=== PATIENT | female | born 1980 | race Caucasian/White ===

== ENCOUNTER → 2018-04-26 09:52 | Outpatient (CLI) | payer MEDICAID, SELFPAY ==
[2018-04-26 11:01] LABS: Absolute Lymphocyte Count 1.72 X10^3/ul (0.83-4.51); Absolute Neutrophil Count 4.3 X10^3/uL (2.0-7.7); Basophil# 0.01 X10^3/uL; Basophil% 0.2 % (0-1); Eosinophil# 0.15 X10^3/uL; Eosinophils% 2.3 % (0-5); Hematocrit 41.3 % (37-47); Hemoglobin 14.2 g/dl (12.0-15.0); Lymphocyte # 1.72 X10^3/ul (4.0); Lymphocyte % 26.2 % (19-41); Mean Corp Hgb Conc 34.4 g/gl (32-36); Mean Corpuscular Hgb 30.9 pg (27.0-32.0); Mean Platelet Vol. 9.5 fl (6.2-12.0); Monocyte# 0.35 X10^3/uL; Monocyte% 5.3 % (0-10); Neutrophil # 4.32 X10^3/uL (2.7-7.7); Neutrophil % 65.7 % (47-70); Platelet Count 347 K/mm3 (150-450); RBC Distribution Width CV 12.4 % (11.6-14.6); RBC Distribution Width SD 40.3 fl (35.1-43.9); Red Blood Count 4.59 M/mm3 (4.2-5.4); White Blood Count 6.6 K/mm3 (4.4-11.0)
[2018-04-26 11:04] LABS: POSITIVE COUNT NO; POSITIVE DIFFERENTIAL NO; POSITIVE MORPHOLOGY NO
[2018-04-26 11:26] LABS: Hemoglobin A1c 9.6 % (4.2-6.3)
[2018-04-26 11:28] LABS: ALB/GLOB Ratio 0.9 RATIO (0.9-2.4); AST(SGOT) 9 U/L (15-37); Alanine Aminotransfer ALT/SGPT 14 U/L (13-56); Albumin, Serum 3.7 g/dL (3.2-5.0); Alkaline Phosphatase 67 U/L (45-117); Anion Gap 8 (5-15); BUN 11 mg/dL (7-18); BUN/Creat Ratio 14.1 RATIO (10-20); Chloride 107 mmol/L (98-107); Cholesterol 191 mg/dL (200); Creatinine, Serum 0.78 mg/dL (0.55-1.02); EST Glomerular Filtration Rate 88 mL/min (>60); Est Glom Filt Rate - Afr Amer 106 mL/min (>60); Globulin 3.9 g/dL (2.2-4.2); Glucose 248 mg/dL (74-106); High Density Lipoprotein 31 mg/dL; Potassium 3.9 mmol/L (3.5-5.1); Protein, Total 7.6 g/dL (6.4-8.2); Sodium Level 140 mmol/L (136-145); Triglycerides 234 mg/dL; Very Low Density Lipoprotein 47 mg/dL (5-40)
[2018-04-26 11:32] LABS: Microalbumin,Random Urine 33.2 mg/L (NO RANGE EST.); Microalbumin:Creatinine Ratio 11.3 mg/g CRE (<30 mg/g CRE)
== END ==
PROVIDERS: Family Provider Internal Medicine; PCP Internal Medicine; Visit Provider Internal Medicine
DX: E11.9 Type 2 diabetes mellitus without complications (principal); E78.5 Hyperlipidemia, unspecified
CPT/HCPCS: 36415; 80053; 80061; 82043; 82570; 83036; 85025

== ENCOUNTER → 2018-07-19 10:04 | Outpatient (CLI) | payer MEDICAID, SELFPAY ==
[2018-05-05 14:30] VITALS: BMI 36.1
[2018-07-19 11:00] LABS: Absolute Lymphocyte Count 1.87 X10^3/ul (0.83-4.51); Absolute Neutrophil Count 5.3 X10^3/uL (2.0-7.7); Basophil# 0.02 X10^3/uL; Basophil% 0.3 % (0-1); Eosinophil# 0.31 X10^3/uL; Hematocrit 41.6 % (37-47); Lymphocyte # 1.87 X10^3/ul (4.0); Lymphocyte % 23.9 % (19-41); Mean Corp Hgb Conc 33.7 g/gl (32-36); Mean Corpuscular Hgb 30.8 pg (27.0-32.0); Mean Corpuscular Volume 91.4 fL (81-99); Mean Platelet Vol. 9.1 fl (6.2-12.0); Monocyte# 0.35 X10^3/uL; Monocyte% 4.5 % (0-10); Neutrophil # 5.25 X10^3/uL (2.7-7.7); Neutrophil % 67.2 % (47-70); Platelet Count 286 K/mm3 (150-450); RBC Distribution Width CV 12.7 % (11.6-14.6); RBC Distribution Width SD 41.3 fl (35.1-43.9); Red Blood Count 4.55 M/mm3 (4.2-5.4); White Blood Count 7.8 K/mm3 (4.4-11.0)
[2018-07-19 11:02] LABS: POSITIVE COUNT NO; POSITIVE DIFFERENTIAL NO; POSITIVE MORPHOLOGY NO
[2018-07-19 11:08] LABS: AST(SGOT) 11 U/L (15-37); Alanine Aminotransfer ALT/SGPT 13 U/L (13-56); Albumin, Serum 3.5 g/dL (3.2-5.0); Alkaline Phosphatase 71 U/L (45-117); Anion Gap 7 (5-15); BUN 8 mg/dL (7-18); BUN/Creat Ratio 10.1 RATIO (10-20); Calcium,Total 8.8 mg/dL (8.5-10.1); Chloride 107 mmol/L (98-107); Cholesterol 212 mg/dL (200); Creatinine, Serum 0.79 mg/dL (0.55-1.02); EST Glomerular Filtration Rate 86 mL/min (>60); Est Glom Filt Rate - Afr Amer 104 mL/min (>60); Globulin 3.4 g/dL (2.2-4.2); Glucose 269 mg/dL (74-106); High Density Lipoprotein 26 mg/dL; Potassium 4.1 mmol/L (3.5-5.1); Protein, Total 6.9 g/dL (6.4-8.2); Sodium Level 139 mmol/L (136-145); Triglycerides 458 mg/dL
[2018-07-19 11:18] LABS: Hemoglobin A1c 9.3 % (4.2-6.3)
--- OUTSIDE RECORDS SUMMARY | 2018-09-12 19:42 | XMS RPT_ITS ---
:1980 Author Organization [facility] Care Team Providers Name Role Phone Oleghe, Efewongbe Attending Unavailable Oleghe, Efewongbe Attending Unavailable Oleghe, Efewongbe Referring Unavailable Oleghe, Efewongbe Primary Care Unavailable Oleghe, Efewongbe Attending Unavailable Oleghe, Efewongbe Referring Unavailable Oleghe, Efewongbe Attending Unavailable Oleghe, Efewongbe Referring Unavailable Oleghe, Efewongbe Primary Care Unavailable Axel Murrell [employer] Attending Unavailable Oleghe, Efewongbe Referring Unavailable Longsdorf, Nadia A Attending Unavailable Longsdorf, Nadia A Primary Care Unavailable Longsdorf, Nadia A Admitting Unavailable Longsdorf, Nadia A Attending Unavailable Longsdorf, Nadia A Primary Care Unavailable Longsdorf, Nadia A Attending Unavailable Longsdorf, Nadia A Primary Care Unavailable Longsdorf, Nadia A Attending Unavailable Longsdorf, Nadia A Primary Care Unavailable Longsdorf, Nadia A Admitting Unavailable Longsdorf, Nadia A Attending Unavailable Longsdorf, Nadia A Primary Care Unavailable Kieran Blanca Admitting Unavailable Kieran Blanca Attending Unavailable Nadia Suh Primary Care Unavailable Nadia Suh Attending Unavailable Nadia Suh A Primary Care Unavailable No Doctor Assigned, Nodr Admitting Unavailable No Doctor Assigned, Nodr Attending Unavailable Nadia Suh A Primary Care Unavailable PROBLEMS PROBLEMS DATE TYPE CONDITION / CODE ATTENDING STATUS SOURCE 05/05/2018 Unknown E11.9 - Type 2 Oleghe, Active [place] diabetes mellitus [facility] without Hospital complications / Repository E11.9(ICD-10) 05/05/2018 Unknown E78.5 - Oleghe, Active [place] Hyperlipidemia, [facility] unspecified / Hospital E78.5(ICD-10) Repository 05/05/2018 Unknown E66.9 - Obesity, Oleghe, Active [facility] unspecified / [facility] E66.9(ICD-10) Hospital Repository 05/05/2018 Unknown Z51.81 - Encounter Oleghe, Active [facility] for therapeutic [facility] drug level Hospital monitoring / Repository Z51.81(ICD-10) PROCEDURES PROCEDURES No Procedure Records FoundRESULTS RESULTS INTERNAL MEDICINE Observed: 07/23/2018 Status: F Source: [facility] OFFICE VISIT 9:14 AM [facility] [address] [place] [address] [place] [address] OFFICE VISIT Date of Service: 07/22/18 MR#: [id number] Acct: [id number] Name: CAMILO HOROWITZ Rep #: [id number] : 1980 Provider: Axel Murrell NP Age/Sex: 37/F Location: [facility] Status: Signed Intake Vital Signs07/22/18 Body Mass Index (BMI) 36.1 07/22/18 Height 5 ft 6 in 07/22/18 Weight: 223 lb 07/22/18 Body Mass Index (BMI) 35.9 07/22/18 Blood Pressure 123/79 H Intake Visit Reasons: HAS FORM FOR NEW JOB AND NEEDS AN A1C Chief Complaint: Form for work needs filled out. Needs an A1C Is patient in pain?: No Allergies acetaminophen [From Vicodin] Allergy (Severe, Verified 07/22/18 14:58) Migraine hydrocodone [From Vicodin] Allergy (Severe, Verified 07/22/18 14:58) Migraine oxycodone [From Percocet] Allergy (Severe, Verified 07/22/18 14:58) Migraine Sulfa (Sulfonamide Antibiotics) Allergy (Severe, Verified 07/22/18 14:58) Vomiting Tetracyclines Allergy (Severe, Verified 07/22/18 14:58) yeast infection metformin Adverse Reaction (Severe, Verified 07/22/18 14:58) stomach pain Medications gabapentin 600 mg tablet 600 mg PO .QID tab 03/12/18 [History Confirmed 07/22/18] glimepiride 4 mg tablet 4 mg PO BID tab 03/12/18 [History Confirmed 07/22/18] potassium chloride ER 10 mEq tablet,extended release 10 meq PO QDAY PRN 03/12/18 [History Confirmed 07/22/18] sitagliptin 100 mg tablet 100 mg PO QDAY 03/12/18 [History Confirmed 07/22/18] exenatide ER 2 mg/0.65 mL subcutaneous pen injector 2 mg SUBCUT QWEEK #4 ea 07/22/18 [Rx Confirmed 07/22/18] PFSH Medical History Vision problems (Chronic) Polycystic ovaries (Chronic) Neuropathy (Chronic) IBS (irritable bowel syndrome) (Chronic) recurrent yeast infections (Chronic) High triglycerides (Chronic) High cholesterol (Chronic) Chronic headaches (Chronic) Gastrointestinal problem (Chronic) H/O emotional problems (Chronic) Diabetes (Chronic) Chronic bronchitis (Chronic) Back problem (Chronic) Seasonal allergies (Chronic) Family History Grandfather Anemia Kidney disease Grandmother Blood clot in vein Aunt Breast cancer Grandfather Colon cancer Mother Depression Kidney disease Mental disorder Father Hypertension Uncle Seizures Social History Smoking Status: Heavy Smoker (>10/day) alcohol intake: never substance use type: marijuana what type of physical activity do you participate in: none HPI HPI Chief Complaint: Form for work needs filled out. Needs an A1C Details: CAMILO HOROWITZ, is a 37 F who presents to the office today for an acute visit to go over her diabetes. She has a past medical history as listed above. 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 The patient states that she has been on gabapentin for approximately 4 years now and has tolerated it well. She denies any motor vehicle accidents or side effects of the medication that would cause her to be impaired when driving a vehicle. She does take this for chronic low back pain, and diabetic neuropathy. A recent A1c was done regarding her type 2 diabetes mellitus and was 9.3. The patient did recently discontinue her atorvastatin, fluoxetine, Victoza, lisinopril, and olanzapine. She states that she refuses those medications to treat her diabetes and bipolar disorder and that she is going the natural route and using [id number] supplements such as black cohosh and is doing intermittent fasting as a diet to help with her blood sugar control. She is willing to consider a weekly GLP1 inhibitor for her diabetes. She refuses all other medications. she denies any episodes of jammie or depression and states that her bipolar is under control without prescription medication management. The patient otherwise denies any fever, chills, nausea, vomiting, shortness of breath, chest pain or pressure, palpitations, orthopnea, lower extremity edema, syncope or presyncopal episodes. ROS Const Constitutional: No chills, fatigue, fever(s), frequent falls, malaise, weakness, sleep problems or change in appetite Eyes Eyes: No blurry vision, change in vision, double vision, discharge or visual disturbances ENT ENT: No abnormal hearing, ear pain, ear pressure, tinnitus or dizziness/vertigo Resp Respiratory: No cough, shortness of breath or wheezing Cardio Cardiology: No chest pain at rest, chest pain with exertion, shortness of breath, dyspnea on exertion, generalized swelling, irregular heart rhythm, lightheadedness, orthopnea, fast heart rate or palpitations Gastro GI: No abdominal pain, change in bowel habits, constipation, diarrhea, nausea/dyspepsia or vomiting Genitourinary-Female: No difficulty urinating, burning urination, painful urination, urinary incontinence, urinary frequency, urinary urgency, urinary hesitancy, urinary retention, Frequent nighttime urination/ nocturia, sexual problems, genital lesions, abnormal vaginal bleeding, pelvic pain, vaginal dryness, vaginal odor or Vaginal Itching Musc Musculoskeletal: No joint pain, back pain, joint swelling, limited range of motion, numbness, tingling or muscle weakness Skin Skin: No change in skin color, itching, rash or wounds Breast Breast: No breast lump or breast pain Neuro Neurology: No frequent falls, weakness, visual disturbances, abnormal hearing, numbness, tingling, unsteady gait/balance, dizziness, loss of vision or memory loss Psych Psychiatric: No change in appetite, No memory loss, No anxiety, No depression, No Thoughts of harming yourself/Others Endo Endocrine: No fatigue, heat intolerance, increased thirst/drinking, increased hunger or increased urination Aller/Imm Allergy/Immunologic: No wheezing, itchy eyes or seasonal allergy symptoms Dominic/Lymp Hematologic/Lymphatic: No easy bleeding, easy bruising or enlarged lymph nodes Exam Const General: cooperative, no acute distress Orientation: alert, awake, oriented x3 HENAL Head: atraumatic, normocephalic Ears: hearing grossly normal bilaterally Resp Effort AND Inspection: normal respiratory effort, able to speak in complete sentences Auscultation: Bilateral: Clear to Auscultation Cardio Rate: regular rate Rhythm: regular rhythm Heart Sounds: S1 normal, S2 normal GI Palpation: soft, no hepatosplenomegaly Musc Musculoskeletal: No muscle weakness Neuro General: alert, awake, oriented x3, moves all extremities, CN's II-XI intact bilaterally Extrem General: no clubbing, cyanosis or edema Psych Appearance: grossly normal Mood: congruent mood Affect: normal affect Assessment AND Plan 1. Type 2 diabetes mellitus E11.9 Plan The patient's most recent A1c was reviewed and was not at goal. Will make adjustments to his medication regimen including the addition of bydureon weekly. Educated patient on potential side effects of medication and proper instruction on its use. Discussed red flag symptoms that require urgent medical attention. Discussed with patient lifestyle changes, risk factor reduction, and the benefits of maximizing nutrition and exercise. Patient verbalized understanding. Patient to follow-up in 3 months with repeat A1c will be done prior. Patient refuses to be on lisinopril, and she discontinued her previous Victoza. Patient does state that eventually she is going to discontinue all of her medications. Educated patient not to do this and the potential deleterious effects of doing so. Patient has been on her gabapentin for 4 years now and has not had any unwanted side effects from it, she takes this for her neuropathy and back pain. 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 Did discuss with her that ill effects of hyperglycemia and the importance of bringing down her blood sugars, however she wishes to continue to work on lowering them the natural way 2. Neuropathy G62.9 Plan plan as above 3. Bipolar 1 disorder F31.9 Plan Denies any episodes of jammie or depression. She discontinued all of her bipolar medications and is now taking black cohosh. Did discuss that this was not medically recommended. Patient is aware of the risks and wishes to continue with natural treatment. Patient to follow-up as previously scheduled later this month or sooner if needed Plan Detail Other Medications New: exenatide ER (Bydureon) inject into abdomen, thigh2 mg (0.65 mL) subcut QWEEK 4 ea 3RF , or upper arm (deltoid muscle); rotate sites Follow Up As previously scheduled or sooner Coding Level of Care Code Off vis,est,level 3 Diagnoses Type 2 diabetes mellitus E11.9 Neuropathy G62.9 Bipolar 1 disorder F31.9 07/23/18 0914 <Electronically signed by Axel MORRIS> Date Axel MORRIS Cosigner Signature: Date (if applicable) CC: CBC W/DIFF, AUTOMATED Collected: 07/19/2018 Status: F Source: [facility] 10:21 AM [facility] TYPE CODE TESTS RESULT OUT OF RANGE REFERENCE UNITS LAB L100.1000 4.4-11.0 K/mm3 Normal WBC 7.8 LAB L100.1200 4.2-5.4 M/mm3 Normal RBC 4.55 LAB L100.1300 12.0-15.0 g/dl Normal HGB 14.0 LAB L100.1400 37-47 % Normal HCT 41.6 LAB L100.1500 81-99 fL Normal MCV 91.4 LAB L100.1600 27.0-32.0 pg Normal MCH 30.8 LAB L100.1700 32-36 g/gl Normal MCHC 33.7 LAB L100.1810 11.6-14.6 % Normal RDW CV 12.7 LAB L100.1820 35.1-43.9 fl Normal RDW SD 41.3 LAB L100.1900 150-450 K/mm3 Normal PLT 286 LAB L100.2000 6.2-12.0 fl Normal MPV 9.1 LAB L100.2100 47-70 % Normal NEUT% 67.2 LAB L100.2200 19-41 % Normal LY% 23.9 LAB L100.2300 0-10 % Normal MONO% 4.5 LAB L100.2400 0-5 % Normal EO% 4.0 LAB L100.2500 0-1 % Normal BASO% 0.3 LAB L100.2550 0.0-0.9 % Normal IM GRAN % 0.100 Result Comment: IG% - Immature Granulocytes (promyelocytes, myelocytes and metamyelocytes) > 1% indicates that a LEFT SHIFT is Present. LAB L100.2620 2.0-7.7 X10 3/uL Normal Absolute Neut 5.3 LAB L100.2720 0.83-4.51 X10 3/ul Normal Absolute Lymph 1.87 Performed By: #### L100.0100 #### [facility] [address] [place], [place], [address] COMPREHENSIVE METABOLIC Collected: 07/19/2018 Status: F Source: [facility] 10:21 AM [facility] TYPE CODE TESTS RESULT OUT OF RANGE REFERENCE UNITS LAB L501.0100 74-106 mg/dL High GLU 269 Result Comment: Glucose result greater than or equal to 200 mg/dL suggests DIABETES MELLITUS per A.D.A. criteria. Please note revised GLUCOSE reference range effective 2017. LAB L501.1000 7-18 mg/dL Normal BUN 8 LAB L501.1100 0.55-1.02 mg/dL Normal CREAT,SERUM 0.79 Result Comment: The validity of the calculated GFR AND GFRAA in patients over 70 years has not been determined. Clinical correlation is essential. LAB L501.1110 >60 mL/min Normal EST GFR 86 Result Comment: Non- GFR Calc LAB L501.1115 >60 mL/min Normal EST GFR - AA 104 Result Comment: GFR Calc LAB L501.1300 10-20 RATIO Normal BUN/CRE 10.1 LAB L501.1500 6.4-8.2 g/dL T Normal PROT 6.9 LAB L501.1800 3.2-5.0 g/dL Normal ALB 3.5 LAB L501.1950 2.2-4.2 g/dL Normal GLOB 3.4 LAB L501.2000 0.9-2.4 RATIO Normal A/G 1.0 LAB L501.2200 8.5-10.1 mg/dL CA Normal 8.8 LAB L501.4100 15-37 U/L Low AST 11 LAB L501.4305 45-117 U/L Normal ALK P 71 LAB L501.4405 13-56 U/L Normal ALT 13 LAB L501.4600 0.20-1.00 mg/dL T Normal BILI 0.30 LAB L501.5300 136-145 mmol/L NA Normal 139 LAB L501.5600 3.5-5.1 mmol/L K Normal 4.1 LAB L501.5900 98-107 mmol/L CL Normal 107 LAB L501.6100 21.0-32.0 mmol/L Normal CO2 25.0 LAB L501.6200 5-15 Normal GAP 7 Performed By: #### L500.4050, L500.4100 #### [facility] [address] [place], [address] LIPID PROFILE Collected: 07/19/2018 Status: F Source: [facility] 10:21 AM [facility] TYPE CODE TESTS RESULT OUT OF RANGE REFERENCE UNITS LAB L501.4900 200 mg/dL High CHOL 212 Result Comment: <200 mg/dL Desirable 200-240 mg/dL Borderline >240 mg/dL High Risk LAB L501.5000 mg/dL High TRIG 458 Result Comment: The drugs N-Acetylcysteine and Metamizole may falsely depress this assay. TRIGLYCERIDE IS GREATER THAN 400 mg/dL. LDL RESULT IS INVALID AND WILL NOT BE REPORTED. Serum Triglycerides Reference Interval Normal <150 mg/dL Borderline high 150 - 199 mg/dL High 200 - 499 mg/dL Very High > or = 500 mg/dL LAB L501.6400 mg/dL Low HDL 26 Result Comment: The drugs N-Acetylcysteine and Metamizole may falsely depress this assay. Reference Range HDL <40 mg/dL Low HDL Cholesterol HDL >or= 60 mg/dL High HDL Cholesterol LAB L501.6500 0-130 mg/dL Test Normal not performed LDL LAB L501.6600 5-40 mg/dL Test Normal not performed VLDL Performed By: #### L500.4050, L500.4100 #### [facility] [address] [place], [address] HEMOGLOBIN A1C Collected: 07/19/2018 Status: F Source: [facility] 10:21 AM [facility] TYPE CODE TESTS RESULT OUT OF RANGE REFERENCE UNITS LAB L501.9985 4.2-6.3 % High HGB A1C 9.3 Performed By: #### L501.9985 #### [facility] [address] [place], [address] INTERNAL MEDICINE Observed: 05/06/2018 Status: F Source: [facility] [place] OFFICE VISIT 5:15 PM [facility] [address] [place] [address] [place] [address] OFFICE VISIT Date of Service: 05/05/18 MR#: [id number] Acct: [id number] Name: HOROWITZCAMILO Elle Rep #: [id number] : 1980 Provider: Chano Abrams MD Age/Sex: 37/F Location: [facility] Status: Signed Intake Vital Signs05/05/18 Height 5 ft 6 in Intake Visit Reasons: 1 MO FU Chief Complaint: follow-up visit Is patient in pain?: No Allergies acetaminophen [From Vicodin] Allergy (Severe, Verified 03/12/18 18:00) Migraine hydrocodone [From Vicodin] Allergy (Severe, Verified 03/12/18 18:00) Migraine oxycodone [From Percocet] Allergy (Severe, Verified 03/12/18 18:00) Migraine Sulfa (Sulfonamide Antibiotics) Allergy (Severe, Verified 03/12/18 18:00) Vomiting Tetracyclines Allergy (Severe, Verified 03/12/18 18:00) yeast infection metformin Adverse Reaction (Severe, Verified 03/12/18 18:00) stomach pain Medications gabapentin 600 mg tablet 600 mg PO .QID tab 03/12/18 [History Confirmed 03/12/18] glimepiride 4 mg tablet 4 mg PO BID tab 03/12/18 [History Confirmed 03/12/18] hydroxyzine HCl 25 mg tablet 25 mg PO TID-QID PRN 03/12/18 [History Confirmed 03/12/18] liraglutide 0.6 mg/0.1 mL (18 mg/3 mL) subcutaneous pen injector 1.2 mg SC QDAY #9 ml 03/12/18 [Rx Confirmed 03/12/18] potassium chloride ER 10 mEq tablet,extended release 10 meq PO QDAY PRN 03/12/18 [History Confirmed 03/12/18] sitagliptin 100 mg tablet 100 mg PO QDAY 03/12/18 [History Confirmed 03/12/18] CBD oil INHALATION 05/05/18 [History Confirmed 05/05/18] atorvastatin 40 mg tablet 40 mg PO DAILY #90 tab 05/05/18 [Rx Confirmed 05/05/18] fluoxetine 20 mg capsule 20 mg PO QPM #30 cap 05/05/18 [Rx Confirmed 05/05/18] lisinopril 2.5 mg tablet 2.5 mg PO DAILY #60 tab 05/05/18 [Rx Confirmed 05/05/18] olanzapine 5 mg tablet 5 mg PO QPM #30 tab 05/05/18 [Rx Confirmed 05/05/18] PFSH Medical History Vision problems (Chronic) Polycystic ovaries (Chronic) Neuropathy (Chronic) IBS (irritable bowel syndrome) (Chronic) recurrent yeast infections (Chronic) High triglycerides (Chronic) High cholesterol (Chronic) Chronic headaches (Chronic) Gastrointestinal problem (Chronic) H/O emotional problems (Chronic) Diabetes (Chronic) Chronic bronchitis (Chronic) Back problem (Chronic) Seasonal allergies (Chronic) Family History Grandfather Anemia Kidney disease Grandmother Blood clot in vein Aunt Breast cancer Grandfather Colon cancer Mother Depression Kidney disease Mental disorder Father Hypertension Uncle Seizures Social History Smoking Status: Heavy Smoker (>10/day) alcohol intake: never substance use type: marijuana what type of physical activity do you participate in: none HPI HPI Chief Complaint: follow-up visit Details: CAMILO HOROWITZ, is a 37 F who presents to the office today for follow-up of her chronic medical conditions. She has a history of poorly controlled diabetes. She brings along a blood sugar log which shows poor control still. Last A1c of 9.6. She reports compliance with her medications. She is up-to-date with her podiatry and ophthalmology visits. He however reports a history of bipolar disorder and recently discontinued Effexor due to worsening jammie. Had previously followed up with psychiatry however does not now. ROS Const Constitutional: No weight change, body ache, chills, fatigue, sleep problems, fever(s), change in appetite, snoring, weakness, frequent falls, headache(s) or excessive sweating Eyes Eyes: No change in vision, eye pain, light sensitivity or blurry vision ENT ENT: No headache(s), abnormal hearing, ear pain, tinnitus, nasal congestion, sore throat or neck pain Resp Respiratory: No snoring, cough, shortness of breath or wheezing Cardio Cardiology: No excessive sweating, chest pain at rest, chest pain with exertion, shortness of breath, dyspnea on exertion, palpitations, orthopnea or lightheadedness Gastro GI: No abdominal pain, change in bowel habits, constipation, diarrhea, vomiting, nausea/dyspepsia or cramping Genitourinary-Female: No burning urination, painful urination, urinary incontinence, urinary frequency, abnormal vaginal bleeding, pelvic pain or other Musc Musculoskeletal: No neck pain, abnormal walking, joint pain, back pain, limited range of motion, numbness, tingling or muscle weakness Skin Skin: No redness, dry skin, itching, lesions, wounds or rash Neuro Neurology: No weakness, frequent falls, headache(s), abnormal hearing, abnormal walking, numbness, tingling, abnormal speech, dizziness or memory loss Psych Psychiatric: No change in appetite, No memory loss, No anxiety, No depression, No Thoughts of harming yourself/Others Endo Endocrine: No fatigue, excessive sweating, cold intolerance, increased thirst/drinking, heat intolerance, flushing or increased hunger Aller/Imm Allergy/Immunologic: No wheezing, itchy eyes, hives or seasonal allergy symptoms Dominic/Lymp Hematologic/Lymphatic: No easy bleeding, easy bruising or enlarged lymph nodes Exam Const General: cooperative, no acute distress Orientation: alert, awake, oriented x3 HENMT Head: atraumatic, normocephalic Ears: hearing grossly normal bilaterally Resp Effort AND Inspection: normal respiratory effort, able to speak in complete sentences Auscultation: Bilateral: Clear to Auscultation Cardio Rate: regular rate Rhythm: regular rhythm Heart Sounds: S1 normal, S2 normal GI Palpation: soft, no hepatosplenomegaly Musc Musculoskeletal: No muscle weakness Neuro General: alert, awake, oriented x3, moves all extremities, CN's II-XI intact bilaterally Extrem General: no clubbing, cyanosis or edema Psych Appearance: grossly normal Mood: congruent mood Affect: normal affect Assessment AND Plan 1. Type 2 diabetes mellitus E11.9 Plan Not optimally controlled. I believe to Lidex and this has to do with her dietary intake. Referred to the why weight program. Lifestyle and dietary modifications strongly encouraged. Compliance with medication also encouraged. Started on lisinopril and atorvastatin. Follows up with [facility]. Scheduled to have a ophthalmology check soon. Repeat labs in 3 months. Orders Orders: Referrals: 2. Bipolar 1 disorder F31.9 Plan Has been on antidepressants which has worsened her symptoms of jammie. Will start on Zyprexa 5 mg and fluoxetine 20 mg every evening. Follow-up in 1 month with [facility]. 3. Hyperlipidemia E78.5 Plan Chronic. Hypertriglyceridemia with no significant improvement. We will switch to Lipitor as stated above. Lifestyle modifications discussed. Follow-up at next visit. Orders Orders: Plan Detail Other Orders Orders: Referrals: Other Medications New: Discontinued: Coding Level of Care Code Off vis,est,level 4 Diagnoses Type 2 diabetes mellitus E11.9 Bipolar 1 disorder F31.9 Hyperlipidemia E78.5 05/06/18 1715 <Electronically signed by Chano Abrams MD> Date Chano Abrams MD Cosigner Signature: Date (if applicable) CC: [facility] W/DIFF, AUTOMATED Collected: 04/26/2018 Status: F Source: [facility] 10:09 AM [facility] TYPE CODE TESTS RESULT OUT OF RANGE REFERENCE UNITS LAB L100.1000 4.4-11.0 K/mm3 Normal WBC 6.6 LAB L100.1200 4.2-5.4 M/mm3 Normal RBC 4.59 LAB L100.1300 12.0-15.0 g/dl Normal HGB 14.2 LAB L100.1400 37-47 % Normal HCT 41.3 LAB L100.1500 81-99 fL Normal MCV 90.0 LAB L100.1600 27.0-32.0 pg Normal MCH 30.9 LAB L100.1700 32-36 g/gl Normal MCHC 34.4 LAB L100.1810 11.6-14.6 % Normal RDW CV 12.4 LAB L100.1820 35.1-43.9 fl Normal RDW SD 40.3 LAB L100.1900 150-450 K/mm3 Normal PLT 347 LAB L100.2000 6.2-12.0 fl Normal MPV 9.5 LAB L100.2100 47-70 % Normal NEUT% 65.7 LAB L100.2200 19-41 % Normal LY% 26.2 LAB L100.2300 0-10 % Normal MONO% 5.3 LAB L100.2400 0-5 % Normal EO% 2.3 LAB L100.2500 0-1 % Normal BASO% 0.2 LAB L100.2550 0.0-0.9 % Normal IM GRAN % 0.300 Result Comment: IG% - Immature Granulocytes (promyelocytes, myelocytes and metamyelocytes) > 1% indicates that a LEFT SHIFT is Present. LAB L100.2620 2.0-7.7 X10 3/uL Normal Absolute Neut 4.3 LAB L100.2720 0.83-4.51 X10 3/ul Normal Absolute Lymph 1.72 Performed By: #### L100.0100 #### [facility] [address] [place], [place], [id number] HEMOGLOBIN A1C Collected: 04/26/2018 Status: F Source: [facility] 10:08 AM [facility] TYPE CODE TESTS RESULT OUT OF RANGE REFERENCE UNITS LAB L501.9985 4.2-6.3 % High HGB A1C 9.6 Performed By: #### L501.9985 #### [facility] [address] [place], [place], [id number] COMPREHENSIVE METABOLIC Collected: 04/26/2018 Status: F Source: [facility] 10:08 AM [facility] Order Comment: Comments: Fasting Comments: Fasting TYPE CODE TESTS RESULT OUT OF RANGE REFERENCE UNITS LAB L501.0100 74-106 mg/dL High GLU 248 Result Comment: Glucose result greater than or equal to 200 mg/dL suggests DIABETES MELLITUS per A.D.A. criteria. Please note revised GLUCOSE reference range effective 2017. LAB L501.1000 7-18 mg/dL Normal BUN 11 LAB L501.1100 0.55-1.02 mg/dL Normal CREAT,SERUM 0.78 Result Comment: The validity of the calculated GFR AND GFRAA in patients over 70 years has not been determined. Clinical correlation is essential. LAB L501.1110 >60 mL/min Normal EST GFR 88 Result Comment: Non- GFR Calc LAB L501.1115 >60 mL/min Normal EST GFR - AA 106 Result Comment: GFR Calc LAB L501.1300 10-20 RATIO Normal BUN/CRE 14.1 LAB L501.1500 6.4-8.2 g/dL T Normal PROT 7.6 LAB L501.1800 3.2-5.0 g/dL Normal ALB 3.7 LAB L501.1950 2.2-4.2 g/dL Normal GLOB 3.9 LAB L501.2000 0.9-2.4 RATIO Normal A/G 0.9 LAB L501.2200 8.5-10.1 mg/dL CA Normal 9.0 LAB L501.4100 15-37 U/L Low AST 9 LAB L501.4305 45-117 U/L Normal ALK P 67 LAB L501.4405 13-56 U/L Normal ALT 14 LAB L501.4600 0.20-1.00 mg/dL T Normal BILI 0.30 LAB L501.5300 136-145 mmol/L NA Normal 140 LAB L501.5600 3.5-5.1 mmol/L K Normal 3.9 LAB L501.5900 98-107 mmol/L CL Normal 107 LAB L501.6100 21.0-32.0 mmol/L Normal CO2 25.0 LAB L501.6200 5-15 Normal GAP 8 Performed By: #### L500.4050, L500.4100 #### [facility] [address] [place], [address] LIPID PROFILE Collected: 04/26/2018 Status: F Source: BIAN[place] 10:08 AM [facility] Order Comment: Comments: Fasting Comments: Fasting TYPE CODE TESTS RESULT OUT OF RANGE REFERENCE UNITS LAB L501.4900 200 mg/dL Normal CHOL 191 Result Comment: <200 mg/dL Desirable 200-240 mg/dL Borderline >240 mg/dL High Risk LAB L501.5000 mg/dL High TRIG 234 Result Comment: The drugs N-Acetylcysteine and Metamizole may falsely depress this assay. Serum Triglycerides Reference Interval Normal <150 mg/dL Borderline high 150 - 199 mg/dL High 200 - 499 mg/dL Very High > or = 500 mg/dL LAB L501.6400 mg/dL Low HDL 31 Result Comment: The drugs N-Acetylcysteine and Metamizole may falsely depress this assay. Reference Range HDL <40 mg/dL Low HDL Cholesterol HDL >or= 60 mg/dL High HDL Cholesterol LAB L501.6500 0-130 mg/dL Normal LDL 113 LAB L501.6600 5-40 mg/dL High VLDL 47 Performed By: #### L500.4050, L500.4100 #### [facility] [address] [place], [address] MICROALB:CREAT Collected: 04/26/2018 Status: F Source: BIANCA RATIO,RANDOM UR 10:08 AM [facility] TYPE CODE TESTS RESULT OUT OF RANGE REFERENCE UNITS LAB L501.1200 NO RANGE EST. mg/dL Normal UR CREAT 293.00 LAB L502.0500 NO RANGE EST. mg/L Normal 33.2 MICROALBUMIN ,UR LAB L502.0600 <30 mg/g CRE mg/g CRE Normal 11.3 MALB:CREAT Performed By: #### L502.0250 #### [facility] [address] [place], [address] INTERNAL MEDICINE Observed: 03/17/2018 Status: F Source: BIANCA OFFICE VISIT 4:20 PM [facility] [address] [place] [address] OFFICE VISIT Date of Service: 03/12/18 MR#: [id number] Acct: [id number] Name: CAMILO HOROWITZ Rep #: [id number] : 1980 Provider: Chano Abrams MD Age/Sex: 37/F Location: [facility] Status: Signed Intake Vital Signs03/12/18 Height 5 ft 6 in 03/12/18 Weight: 223 lb 03/12/18 Body Mass Index (BMI) 35.9 03/12/18 Blood Pressure 122/79 Intake Visit Reasons: est pcp Chief Complaint: Check up Est PCP Is patient in pain?: No Allergies acetaminophen [From Vicodin] Allergy (Severe, Verified 03/12/18 18:00) Migraine hydrocodone [From Vicodin] Allergy (Severe, Verified 03/12/18 18:00) Migraine oxycodone [From Percocet] Allergy (Severe, Verified 03/12/18 18:00) Migraine Sulfa (Sulfonamide Antibiotics) Allergy (Severe, Verified 03/12/18 18:00) Vomiting Tetracyclines Allergy (Severe, Verified 03/12/18 18:00) yeast infection metformin Adverse Reaction (Severe, Verified 03/12/18 18:00) stomach pain Medications gabapentin 600 mg tablet 600 mg PO .QID tab 03/12/18 [History Confirmed 03/12/18] gemfibrozil 600 mg tablet 600 mg PO BID 03/12/18 [History Confirmed 03/12/18] glimepiride 4 mg tablet 4 mg PO BID tab 03/12/18 [History Confirmed 03/12/18] hydroxyzine HCl 25 mg tablet 25 mg PO TID-QID PRN 03/12/18 [History Confirmed 03/12/18] liraglutide 0.6 mg/0.1 mL (18 mg/3 mL) subcutaneous pen injector 1.2 mg SC QDAY #9 ml 03/12/18 [Rx Confirmed 03/12/18] potassium chloride ER 10 mEq tablet,extended release 10 meq PO QDAY PRN 03/12/18 [History Confirmed 03/12/18] sitagliptin 100 mg tablet 100 mg PO QDAY 03/12/18 [History Confirmed 03/12/18] venlafaxine ER 150 mg capsule,extended release 24 hr 150 mg PO QDAY 03/12/18 [History Confirmed 03/12/18] PFSH Medical History Vision problems (Chronic) Polycystic ovaries (Chronic) Neuropathy (Chronic) IBS (irritable bowel syndrome) (Chronic) recurrent yeast infections (Chronic) High triglycerides (Chronic) High cholesterol (Chronic) Chronic headaches (Chronic) Gastrointestinal problem (Chronic) H/O emotional problems (Chronic) Diabetes (Chronic) Chronic bronchitis (Chronic) Back problem (Chronic) Seasonal allergies (Chronic) Family History Grandfather Anemia Kidney disease Grandmother Blood clot in vein Aunt Breast cancer Grandfather Colon cancer Mother Depression Kidney disease Mental disorder Father Hypertension Uncle Seizures Social History Smoking Status: Heavy Smoker (>10/day) alcohol intake: never substance use type: marijuana what type of physical activity do you participate in: none HPI HPI Chief Complaint: Check up Est PCP Details: CAMILO HOROWITZ, is a 37yo F who presents to the office today to establish care. She has a history of poorly controlled DM and hyperlipidemia. She reports compliance with her medications however has had difficulty complying with her diet. ROS Const Constitutional: No chills, fever(s), frequent falls, malaise, weakness, sleep problems or change in appetite Eyes Eyes: No blurry vision, change in vision, double vision, discharge or visual disturbances ENT ENT: No abnormal hearing, ear pain, ear pressure, tinnitus or dizziness/vertigo Resp Respiratory: No cough, shortness of breath or wheezing Cardio Cardiology: No chest pain at rest, chest pain with exertion, shortness of breath, dyspnea on exertion, generalized swelling, irregular heart rhythm, lightheadedness, orthopnea, fast heart rate or palpitations Gastro GI: No abdominal pain, change in bowel habits, constipation, diarrhea, nausea/dyspepsia or vomiting Genitourinary-Female: No difficulty urinating, burning urination, painful urination, urinary incontinence, urinary frequency, urinary urgency, urinary hesitancy, urinary retention, Frequent nighttime urination/ nocturia, sexual problems, genital lesions, abnormal vaginal bleeding, pelvic pain, vaginal dryness, vaginal odor or Vaginal Itching Musc Musculoskeletal: Positive for back pain; no joint pain, joint swelling, limited range of motion, muscle weakness, numbness or tingling Skin Skin: No change in skin color, itching, rash or wounds Breast Breast: No breast lump or breast pain Neuro Neurology: No frequent falls, weakness, abnormal hearing, numbness, tingling, unsteady gait/balance, dizziness, loss of vision, memory loss or visual disturbances Psych Psychiatric: No memory loss, Positive for anxiety, No change in appetite, Positive for depression, No Thoughts of harming yourself/Others Endo Endocrine: Positive for increased thirst/drinking; no heat intolerance, increased hunger or increased urination Aller/Imm Allergy/Immunologic: No wheezing, itchy eyes or seasonal allergy symptoms Dominic/Lymp Hematologic/Lymphatic: No easy bleeding, easy bruising or enlarged lymph nodes Exam Const General: cooperative, no acute distress Orientation: alert, awake, oriented x3 HENMT Head: atraumatic, normocephalic Ears: hearing grossly normal bilaterally Resp Effort AND Inspection: normal respiratory effort, able to speak in complete sentences Auscultation: Bilateral: Clear to Auscultation Cardio Rate: regular rate Rhythm: regular rhythm Heart Sounds: S1 normal, S2 normal GI Palpation: soft, no hepatosplenomegaly Musc Musculoskeletal: No muscle weakness Neuro General: alert, awake, oriented x3, moves all extremities, CN's II-XI intact bilaterally Extrem General: no clubbing, cyanosis or edema Psych Appearance: grossly normal Mood: congruent mood Affect: normal affect Assessment AND Plan 1. Type 2 diabetes mellitus E11.9 Plan Poorly controlled. Lengthy discussion on the need for life style modification. Increase Victoza to 1.2mg daily. Labs ordered. Follow up in 1 month. Orders Orders: 2. Hyperlipidemia E78.5 Plan Lipid profile ordered. Continue current medication. Orders Orders: 3. Depression with anxiety F41.8 Plan Stable. Continue Effexor. Will follow. Plan Detail Other Medications New: Follow Up 1 Month Coding Level of Care Code Off vis,new,level 4 Diagnoses Type 2 diabetes mellitus E11.9 Hyperlipidemia E78.5 Depression with anxiety F41.8 03/17/18 1620 <Electronically signed by Chano Abrams MD> Date Chano Abrams MD Cosigner Signature: Date (if applicable) CC: CMP Collected: 08/20/2017 Status: F Source: [facility] 1:12 PM [facility] REPOSITORY TYPE CODE TESTS RESULT OUT OF RANGE REFERENCE UNITS LAB 08640554(L 70-99 mg/dL OINC) High Glucose Lvl 336 LAB 98179432(L 8.4-10.2 mg/dL OINC) Calcium Normal Lvl 9.7 LAB 11884930(L 136-145 mEq/L OINC) Sodium Normal Lvl 137 LAB 07754099(L 3.5-5.1 mEq/L OINC) Normal Potassium Lvl 4.4 LAB 50320235(L 98-107 mEq/L OINC) Chloride Normal 104 LAB 31623874(L 24.0-30.0 mEq/L OINC) CO2 Normal 24.5 LAB 84576454(L 7-18 mg/dL OINC) BUN Normal 9 LAB 0629989(LO 0.6-1.3 mg/dL INC) Normal Creatinine 0.6 LAB 92160061(L 42-121 Int._Unit/ OINC) L Alk Phos Normal 60 LAB 29731500(L 0.2-1.0 mg/dL OINC) Bili Normal Total 0.7 LAB 01692017(L 3.2-5.0 G/DL OINC) Albumin Normal Lvl 4.2 LAB 90350450(L 6.4-8.3 G/DL OINC) Total Normal Protein 7.6 LAB 22874167(L 10-40 Int._Unit/ OINC) L ALT Normal 11 LAB 10011165(L 10-42 Int._Unit/ OINC) L AST Normal 10 LAB 71084374(L 5.4-30.0 ratio OINC) Normal BUN/Creat Ratio 15.0 LAB 61104971(L 2.0-4.0 G/DL OINC) Globulin Normal 3.4 LAB 23650497(L 1.1-1.9 ratio OINC) A/G Normal Ratio 1.2 Performed By: #### [id number] #### [facility] [address] [place] [address] CBC W/ AUTO DIFF Collected: 08/20/2017 Status: F Source: [facility] 1:12 PM [facility] RE[facility] TYPE CODE TESTS RESULT OUT OF RANGE REFERENCE UNITS LAB 16027550(L 3.6-11.0 E3/mcL OINC) Normal WBC 8.3 LAB 73594784(L 3.90-5.40 E6/mcL OINC) Normal RBC 4.53 LAB 58882836(L 12.0-16.0 G/DL OINC) Normal Hgb 14.4 LAB 82403138(L 36.0-48.0 % OINC) Normal Hct 41.8 LAB 43693589(L 11.5-14.5 % OINC) Normal RDW 13.2 LAB 93777700(L 27.0-31.0 pg OINC) High MCH 31.7 LAB 22472541(L 33.0-37.0 G/DL OINC) Normal MCHC 34.4 LAB 05597754(L 78.0-100.0 fL OINC) Normal MCV 92.3 LAB 18923933(L 7.4-11.0 fL OINC) Normal MPV 7.9 LAB 80643571(L 130-400 E3/mcL OINC) Normal Platelet 322 Performed By: #### [id number] #### [place] [address] AUTO DIFF Collected: 08/20/2017 Status: F Source: [facility] 1:12 PM [facility] REPOSITORY Order Comment: Order Added by Discern Expert. TYPE CODE TESTS RESULT OUT OF RANGE REFERENCE UNITS LAB 86510722(L 37.0-75.0 % OINC) Normal Neutro Auto 72.0 LAB 15447930(L 20.0-55.0 % OINC) Normal Lymph Auto 21.5 LAB 43949186(L 0.0-10.0 % OINC) Normal Marin Auto 4.6 LAB 12242810(L 0.0-11.0 % OINC) Normal Eos Auto 1.5 LAB 46171582(L 0.0-2.0 % OINC) Normal Basophil Auto 0.4 LAB 04029074(L 1.4-6.5 E3/mcL OINC) Normal Neutro 6.0 Absolute LAB 53343169(L 1.2-3.4 E3/mcL OINC) Normal Lymph Absolute 1.8 LAB 61559794(L 0.0-0.7 E3/mcL OINC) Normal Marin Absolute 0.4 LAB 68013864(L 0.0-0.7 E3/mcL OINC) Normal Eos Absolute 0.1 LAB 28304402(L 0.0-0.2 E3/mcL OINC) Normal Basophil 0.0 Absolute Performed By: #### [id number] #### [facility] [address] [place] [address] EGFR Collected: 08/20/2017 Status: F Source: [facility] 1:12 PM [facility] REPOSITORY Order Comment: Order added by Discern Expert. TYPE CODE TESTS RESULT OUT OF RANGE REFERENCE UNITS LAB 41141667(LO mL/min/1.73 INC) m2 Normal eGFR >60 LAB 16945661(LO mL/min/1.73 INC) m2 Normal eGFR AA >60 Performed By: #### [id number] #### [facility] [address] [place] [address] MICROALB/CREAT RATIO Collected: 08/20/2017 Status: F Source: [facility] 1:12 PM [facility] REPOSITORY TYPE CODE TESTS RESULT OUT OF REFERENCE UNITS RANGE LAB 41995333(L 0.0-1.9 mg/dL OINC) Ur High Microalbumin 3.6 LAB 42251873(L 20.0-300.0 mg/dL OINC) Ur Creat Normal 114.0 LAB 03497454(L 0-30 ug/mg OINC) Microalb/Creat High 32 Performed By: #### [id number] #### [facility] [address] [place] [address] LIPID PROFILE Collected: 08/20/2017 Status: F Source: [facility] 1:12 PM [facility] REPOSITORY TYPE CODE TESTS RESULT OUT OF RANGE REFERENCE UNITS LAB 78477759(LO 50-200 mg/dL INC) High Chol 214 Result Comment: TOTAL CHOLEESTEROL: <200 NORMAL 200 - 239 BORDERLINE HIGH >240 HIGH LAB 87964558(LOINC) >=41 mg/dL Low HDL 34 LAB 37736312(LOINC) 0-130 mg/dL High LDL 136 Result Comment: <100 OPTIMAL 100-129 NEAR / ABOVE OPTIMAL 130-159 BORDERLINE HIGH 160-189 HIGH >190 VERY HIGH CALC LDL NOT VALID WHEN TRIGLYCERIDE IS >400 MG/DL LAB 13635829(LOINC) 35-150 mg/dL High Trig 221 Result Comment: <150 NORMAL 150-199 BORDERLINE HIGH 200-499 HIGH >500 VERY HIGH LAB 17744216(LOINC) Normal VLDL 44 Performed By: #### [id number] #### [facility] [address] [place], [place] [address] VITAMIN D 25 HYDROXY Collected: 08/20/2017 Status: F Source: [facility] 1:12 PM [facility] REPOSITORY TYPE CODE TESTS RESULT OUT OF REFERENCE UNITS RANGE LAB 336061569(L 30.0-100.0 ng/mL OINC) Low Vitamin D 25 20.4 Hydroxy Performed By: #### [id number] #### [place] [address] HGBA1C Collected: 08/20/2017 Status: F Source: [facility] 1:12 PM [facility] REPOSITORY TYPE CODE TESTS RESULT OUT OF REFERENCE UNITS RANGE LAB 966162543( 4.0-6.3 % LOINC) High Hemoglobin A1c 10.0 Performed By: #### [id number] #### [facility] Chemistry Manual Subsection [address] [place], [place] [address] TSH Collected: 08/20/2017 Status: F Source: [facility] 1:12 PM [facility] REPOSITORY TYPE CODE TESTS RESULT OUT OF RANGE REFERENCE UNITS LAB 23905782(LO 0.30-5.60 mIU/m INC) Normal TSH 0.57 Performed By: #### [id number] #### [place] [address] FREE T4 Collected: 08/20/2017 Status: F Source: [facility] 1:12 PM [facility] REPOSITORY TYPE CODE TESTS RESULT OUT OF RANGE REFERENCE UNITS LAB 90864129(LO 0.58-1.64 ng/dL INC) Normal T4 Free 0.85 Result Comment: Patients receiving more than 5mg/day of biotin may have interference in test results. A sample should be taken no sooner than eight hours after previous dose. Performed By: #### [id number] #### [place] [place] [id number] VIT B12 Collected: 08/20/2017 Status: F Source: [facility] 1:12 PM [facility] REPOSITORY TYPE CODE TESTS RESULT OUT OF RANGE REFERENCE UNITS LAB 25696440(LO 180-914 pg/mL INC) Normal Vitamin B12 311 Lvl Performed By: #### [id number] #### [facility] [address] [place], [place] [address] ALLERGIES ALLERGIES DATE TYPE / NAME / CODE REACTION SEVERITY SOURCE CODE 07/22/2018 Drug Tetracyclines/F001 YEAST INFECTION SV [place] Allergy/41 587371(RXNORM) Community 8844380([facility] OME [facility]) Repository 07/22/2018 Drug Sulfa (Sulfonamide Vomiting SV [place] Allergy/41 Antibiotics)/F0010 Community 0665968( 00922(RXNORM) [facility] OME [facility]) Repository 07/22/2018 Drug hydrocodone/T09834 MIGRAINE [place] Allergy/41 1554(RXNORM) Community 6881940([facility]) Repository 07/22/2018 Drug oxycodone/N5652372 MIGRAINE [place] Allergy/41 58(RXNORM) Community 7926690([facility]) Repository 07/22/2018 Drug acetaminophen/F006 MIGRAINE SV [place] Allergy/41 059193(RXNORM) Community 0022798([facility]) Repository 07/22/2018 Drug metformin/R4908712 STOMACH PAIN SV [place] Allergy/41 34(RXNORM) Community 8374069([facility]) Repository Drug/35589 tetracycline Severe yeast [place]anda[place] 1003([facility]) System Repository Drug/76139 lithium [place] 1003([facility]) System Repository Drug/62594 minocycline [place] 1003([facility]) System Repository Drug/23052 Vicodin 17351399 [place] 1003([facility]) System Repository Drug/16067 Lopid 795274670 [place] 1003([facility]) System Repository Drug/34615 Ultram [id number] [place] 1003([facility]) System Repository Drug/04010 metFORMIN 86822336 [place] 1003([facility]) System Repository ENCOUNTERS ENCOUNTERS ADMIT/DISCHARGE ACCOUNT NUMBER ADMITTING ENCOUNTER LOCATION SOURCE CLASS 07/22/2018/07/22/20 [id number] Ambulatory BMSBuilding: [place] 18 BMS.[facility] Repository 07/19/2018 [id number] Ambulatory [facility] ding:LAB Repository 07/17/2018/07/17/20 [id number] No Doctor Ambulatory [address] Nodr ding:SH.[facility] Health System B Repository 07/17/2018 [id number] Ambulatory [address] [place] [address] Repository 05/16/2018/05/16/20 [id number] Ambulatory [address] ding:[place] Repository nt Medic 05/08/2018/05/08/20 [id number] [facility], Ambulatory QCareBuildin [place]anda[place] 18 Kieran Reynoso g:QCareRoom: [facility] Room 1 Health System Repository 05/05/2018/05/05/20 [id number] Ambulatory BMSBuilding: [place] 18 BMS.[facility] Repository 04/26/2018 [id number] Ambulatory [facility] ding:LAB Repository 03/12/2018/03/12/20 [id number] Ambulatory BMSBuilding: [place] 18 BMS.[facility] Repository 02/21/2018/02/22/[id number] ding:[place] Repository nt MedicRoom: Room 1 11/25/2017/11/26/19 [id number] Ambulatory [address] ding:[place] Repository nt Medic 08/26/2017/08/26/19 [id number] Ambulatory [address] ding:[place] Repository nt MedicRoom: Room 1 08/20/2017/08/20/[id number] ding:.Lab Health System Repository 08/14/2017/08/14/20 [id number] Ambulatory [address] ding:[place] Repository nt Medic PAYERS PAYERS ENCOUNTER GUARANTOR PAYER SUBSCRIBER SOURCE 07/22/2018 CRYSTAL M Primary CRYSTAL M [place] [id number] Insurance:CARESOURCEP BAKERDOB: [facility] JAMESDELANEY [facility] Number: [id number] [id number] Repository [address]Jto: ([phone]) Date:2018-07-17P O [phone] (HP) [address]ATTN: [place] [address]BB: 07/22/2018 Secondary NOT GIVENUNK [place] Insurance:SELF PAY [facility] Number: Effective Repository Date:2018-07-21 07/19/2018 CRYSTAL M Primary CRYSTAL M [place] [id number] Insurance:CARESOURCEP BAKERDOB: [facility] Number: [id number] [id number] Repository [address]Ieh: ([phone]) Date:2018-07-19P O [phone] () [address]ATTN: [place] [address]KD: 07/19/2018 Secondary NOT GIVENUNK [place] Insurance:SELF PAY [facility] Number: Effective Repository Date:2018-07-19 07/17/2018 CRYSTAL Primary CRYSTAL [employer] BAKERDOB: Insurance:CommercialP BAKERDOB: [facility] Number: [id number] [address]ository [address] [id number] [address] [place] [address], Date:Plan Name:Health [address] [place] [address] [id number]: [place] [phone]: (HP) (HP) 05/05/2018 CRYSTAL M Primary CRYSTAL M [place] [id number] Insurance:CARESOURCEP BAKERDOB: [facility] Number: [id number] [id number] Repository [address]Vwv: ([phone]) Date:2018-03-12P O [phone] () [address]ATTN: [place] [address]LB: 05/05/2018 Secondary NOT GIVENUNK [place] Insurance:SELF PAY [facility] Number: Effective Repository Date:2018-05-05 04/26/2018 CRYSTAL M Primary CRYSTAL Elle [id number] Insurance:CARESOURCEP BAKERDOB: [facility] Number: [id number] [id number] Repository [address]Ohj: ([phone]) Date:2018-04-26 O [phone] () [address]ATTN: [place] [address]SS: 04/26/2018 Secondary NOT GIVENUNK [place] Insurance:SELF PAY [facility] Number: Effective Repository Date:2018-04-26 03/12/2018 CRYSTAL Primary CRYSTAL [place] [id number] [facility] Number: [id number] [id number] Repository [address]Dhe: ([phone]) Date:2018-02-18 O [phone] () [address]ATTN: [place] [address]UT: 03/12/2018 Secondary NOT GIVENUNK [place] Insurance:SELF PAY [facility] Number: Effective Repository Date:2018-03-12 11/25/2017 CRYSTAL M Primary CRYSTAL [place] SCRIBNERDOB: Insurance:1500 SCRIBNERDOB: [facility] E [facility] [id number] [address], Repository [place] [id number]: Number: Effective [place] [id number]: Date:2017-08-26 () [id number] ()Tel: ([phone]) Name:CD:[id number] O [phone] () [address] [address]ZX: 08/26/2017 CRYSTAL M Primary CRYSTAL [place] SCRIBNERDOB: Insurance:1500 SCRIBNERDOB: [facility] E [facility] [id number] System [address] [place] [address] PLPolicy [address] [place] [address], Repository [place] [id number]: Number: Effective [place] [id number]: Date:2017-08-26 - (HP) [id number] (HP)Tel: ([phone]) Name:CD:[id number] O [phone] (WP) [address] [place] [address]VV: 08/20/2017 CRYSTAL M Primary CRYSTAL [place] SCRIBNERDOB: [facility] SCRIBNERDOB: [facility] E [facility] Number: [id number] System [address] [place] [address], Effective [address] [place] [address], Repository [place] [phone]: Date:2017-08-20 - [place] [phone]: [id number] (HP) Name:CD:[id number] (HP)Tel: ([phone]) [address] [place] [address] [phone] (WP) [id number]: 08/14/2017 CRYSTAL M Primary CRYSTAL [place] SCRIBNERDOB: Insurance:1500 SCRIBNERDOB: [facility] E [facility] [id number] System [address] [place] [address] PLPolicy [address] [place] [address], Repository [place] [phone]: Number: Effective [place] [id number]: Date:2017-08-09 - (HP) [id number] (HP)Tel: ([phone]) Name:CD:[id number] O [phone] (WP) [address] [address]MB:
== END ==
PROVIDERS: Family Provider Internal Medicine; PCP Internal Medicine; Referring Provider Internal Medicine; Visit Provider Internal Medicine
DX: E11.9 Type 2 diabetes mellitus without complications (principal); E78.5 Hyperlipidemia, unspecified; Z51.81 Encounter for therapeutic drug level monitoring
CPT/HCPCS: 36415; 80053; 80061; 83036; 85025

== ENCOUNTER → 2019-11-04 15:58 | Outpatient (CLI) | payer MEDICAID, SELFPAY ==
[2019-11-04 15:08] VITALS: BMI 35.6
[2019-11-04 17:11] LABS: Absolute Lymphocyte Count 3.08 X10^3/uL (0.83-4.51); Absolute Neutrophil Count 5.1 X10^3/uL (2.0-7.7); Basophil# 0.03 X10^3/uL; Basophil% 0.3 % (0-1); Eosinophil# 0.38 X10^3/uL; Eosinophils% 4.1 % (0-5); Hematocrit 43.2 % (37-47); Hemoglobin 14.6 g/dL (12.0-15.0); Lymphocyte # 3.08 X10^3/ul (4.0); Lymphocyte % 33.6 % (19-41); Mean Corp Hgb Conc 33.8 g/dL (32-36); Mean Corpuscular Hgb 31.8 pg (27.0-32.0); Mean Corpuscular Volume 94.1 fL (81-99); Mean Platelet Vol. 8.5 fl (6.2-12.0); Monocyte# 0.52 X10^3/uL; Monocyte% 5.7 % (0-10); NRBC Flagged by Analyzer 0 % (0-5); Neutrophil # 5.11 X10^3/uL (2.7-7.7); Neutrophil % 55.9 % (47-70); Platelet Count 307 K/mm3 (150-450); RBC Distribution Width CV 12.6 % (11.6-14.6); RBC Distribution Width SD 43.8 fl (35.1-43.9); Red Blood Count 4.59 M/mm3 (4.2-5.4); White Blood Count 9.2 K/mm3 (4.4-11.0)
[2019-11-04 17:21] LABS: ALB/GLOB Ratio 1.1 RATIO (0.9-2.4); AST(SGOT) 15 U/L (15-37); Alanine Aminotransfer ALT/SGPT 30 U/L (13-56); Albumin, Serum 3.8 g/dL (3.2-5.0); Alkaline Phosphatase 80 U/L (45-117); Anion Gap 4 (5-15); BUN 7 mg/dL (7-18); BUN/Creat Ratio 9.8 RATIO (10-20); Calcium,Total 9.2 mg/dL (8.5-10.1); Chloride 103 mmol/L (98-107); Cholesterol 300 mg/dL (200); Creatinine, Serum 0.72 mg/dL (0.55-1.02); EST Glomerular Filtration Rate 96 mL/min (>60); Est Glom Filt Rate - Afr Amer 116 mL/min (>60); Globulin 3.6 g/dL (2.2-4.2); Glucose 132 mg/dL (74-106); High Density Lipoprotein 35 mg/dL; Potassium 4.1 mmol/L (3.5-5.1); Protein, Total 7.4 g/dL (6.4-8.2); Sodium Level 134 mmol/L (136-145); Triglycerides 976 mg/dL
== END ==
PROVIDERS: PCP Internal Medicine; Referring Provider Internal Medicine; Visit Provider Internal Medicine
DX: E11.9 Type 2 diabetes mellitus without complications (principal); E78.5 Hyperlipidemia, unspecified
CPT/HCPCS: 36415; 80053; 80061; 85025